=== PATIENT | female | born 1930 | race Native Hawaiian/Other Pacific Islander ===

== ENCOUNTER 2016-04-14 08:21 | Outpatient (CLI) | payer OTHER, MEDICARE ==
[~2016-04-14 08:21] MED LIST: CALCIUM600 M1 PO; FURO40TA93 PO; LORCET 5-325 MG1 TAB PO; MELOXICAM7.5 MG PO; MICRO-K10 MEQ PO; SPIRONOLACT25 MG PO; VITAMIN D1000 UNIT PO; WARF4TAB7 PO; WARFARIN2 MG PO
== END 2016-04-14 10:21 | disposition home or self-care (01) ==
LOC: LABW 08:21
DX: I48.91 Unspecified atrial fibrillation (principal); Z79.01 Long term (current) use of anticoagulants; Z51.81 Encounter for therapeutic drug level monitoring
CPT/HCPCS: 36415; 85610

== ENCOUNTER 2016-05-14 15:34 | Emergency (ER) | payer OTHER, MEDICARE ==
[~2016-05-14] VITALS: Ht 160 cm; Wt 78.0 kg
[2016-05-14 15:54] VITALS: TEMP 98.5
[2016-05-14 16:42] LABS: POTASSIUM 4.2 mmol/L (3.6-5.2)
[2016-05-14 16:50] LABS: PLATELET COUNT 197 K/uL (152-353)
[2016-05-14 17:35] VITALS: BP 181/84
== END 2016-05-14 17:35 | disposition home or self-care (01) ==
LOC: ED 15:34
PROVIDERS: Specialist
DX: N93.8 Other specified abnormal uterine and vaginal bleeding (principal)
CPT/HCPCS: 80048; 81000; 85027; 85610; 99283

== ENCOUNTER 2016-05-21 07:55 | Outpatient (CLI) | payer OTHER, MEDICARE | END 2016-05-21 19:31 | disposition home or self-care (01) | LOC: LABW 07:55 | DX: I48.91 Unspecified atrial fibrillation (principal); Z79.01 Long term (current) use of anticoagulants; Z51.81 Encounter for therapeutic drug level monitoring | CPT/HCPCS: 36415; 85610 ==

== ENCOUNTER 2016-05-28 08:30 | Outpatient (CLI) | payer OTHER, MEDICARE | END 2016-05-28 19:43 | disposition home or self-care (01) | LOC: LABW 08:30 | DX: Z79.01 Long term (current) use of anticoagulants (principal); Z51.81 Encounter for therapeutic drug level monitoring | CPT/HCPCS: 36415; 85610 ==

== ENCOUNTER 2016-06-01 09:47 | Outpatient (CLI) | payer OTHER, MEDICARE | END 2016-06-01 10:47 | disposition home or self-care (01) | LOC: LABW 09:47 | DX: I48.91 Unspecified atrial fibrillation (principal); D68.8 Other specified coagulation defects; Z79.899 Other long term (current) drug therapy; Z51.81 Encounter for therapeutic drug level monitoring | CPT/HCPCS: 36415; 85610 ==

== ENCOUNTER 2016-06-18 13:40 | Outpatient (CLI) | payer OTHER, MEDICARE | END 2016-06-18 14:40 | disposition home or self-care (01) | LOC: LAB 13:40 | DX: Z79.899 Other long term (current) drug therapy (principal); D68.8 Other specified coagulation defects; I48.91 Unspecified atrial fibrillation; Z51.81 Encounter for therapeutic drug level monitoring | CPT/HCPCS: 85610 ==

== ENCOUNTER 2016-07-31 13:49 | Outpatient (CLI) | payer OTHER, MEDICARE ==
[2016-07-31 14:05] LABS: PLATELET COUNT 226 K/uL (152-353)
== END 2016-07-31 19:46 | disposition home or self-care (01) ==
LOC: LAB 13:49
PROVIDERS: Nurse Practitioner Family
DX: Z79.899 Other long term (current) drug therapy (principal); I48.91 Unspecified atrial fibrillation; E55.9 Vitamin D deficiency, unspecified; I10 Essential (primary) hypertension; F41.8 Other specified anxiety disorders; E11.9 Type 2 diabetes mellitus without complications; E78.00 Pure hypercholesterolemia, unspecified
CPT/HCPCS: 80053; 80061; 82306; 82607; 83036; 84436; 84443; 85027

== ENCOUNTER 2016-09-09 14:44 | Inpatient (IN) | payer OTHER, MEDICARE ==
[~2016-09-09] VITALS: Ht 160 cm; Wt 75.9 kg
[2016-09-09] VITALS (8 sets, daily range): BP systolic 94–173; BP diastolic 48–74; TEMP 97.4–98.6; Ht 160 cm; Wt 75.9 kg
[2016-09-09] MEDS ORDERED: ELIQUIS2.5 MG PO (15:00)
[2016-09-09 15:57] LABS: PLATELET COUNT 160 K/uL (152-353)
[2016-09-09 16:07] LABS: POTASSIUM 3.9 mmol/L (3.6-5.2)
[2016-09-09 16:12] LABS: PARTIAL THROMBOPLASTIN TIME 21.5 SECONDS (24.5-33.6)
--- NOTE | 2016-09-09 18:50 | NUR ---
REDNESS OF L LEG OUTLINED WITH MARKER.
[2016-09-10 04:00] VITALS: BP 111/62; TEMP 97.5
[2016-09-10 05:28] LABS: PLATELET COUNT 136 K/uL (152-353)
[2016-09-10 05:44] LABS: POTASSIUM 3.6 mmol/L (3.6-5.2)
[2016-09-10 08:00] VITALS: BP 122/64; TEMP 97.8
[2016-09-10 12:09] VITALS: BP 117/50; TEMP 97.7
[2016-09-10 16:00] VITALS: BP 126/60; TEMP 97.8
[2016-09-10 20:00] VITALS: BP 134/62; TEMP 98.3
[2016-09-11] VITALS: BP 109/55; TEMP 97.7
[2016-09-11 04:00] VITALS: BP 139/58; TEMP 97.9
[2016-09-11 07:58] LABS: POTASSIUM 3.7 mmol/L (3.6-5.2)
[2016-09-11 08:00] VITALS: BP 130/77; TEMP 97.7
[2016-09-11 08:05] LABS: PLATELET COUNT 149 K/uL (152-353)
[2016-09-11 12:00] VITALS: BP 150/71; TEMP 98
[2016-09-11 16:00] VITALS: BP 146/72; TEMP 97.8
[2016-09-11 20:00] VITALS: BP 181/79; TEMP 97.8
[2016-09-12] VITALS: BP 168/76; TEMP 98
[2016-09-12 04:00] VITALS: BP 151/86; TEMP 98.1
[2016-09-12 05:42] LABS: PLATELET COUNT 138 K/uL (152-353)
[2016-09-12 06:03] LABS: POTASSIUM 3.7 mmol/L (3.6-5.2)
[2016-09-12 08:00] VITALS: BP 161/79; TEMP 98.2
[2016-09-12 12:00] VITALS: BP 139/76; TEMP 97.5
[2016-09-12 16:00] VITALS: BP 152/76; TEMP 97.8
[2016-09-12 20:00] VITALS: BP 144/63; TEMP 97.9
[2016-09-13] VITALS: BP 141/65; TEMP 97.9
[2016-09-13 04:00] VITALS: BP 176/75; TEMP 97.3
[2016-09-13 05:30] LABS: PLATELET COUNT 146 K/uL (152-353)
[2016-09-13 08:00] VITALS: BP 175/85; TEMP 97.6
[2016-09-13 12:00] VITALS: BP 124/63; TEMP 97.3
[2016-09-13 15:59] VITALS: BP 97/61; TEMP 98.2
[2016-09-13 20:00] VITALS: BP 153/82; TEMP 98
[2016-09-14] VITALS: BP 173/87; TEMP 97.4
[2016-09-14 04:00] VITALS: BP 185/81; TEMP 97.9
[2016-09-14 05:14] LABS: PLATELET COUNT 143 K/uL (152-353)
[2016-09-14 05:30] LABS: POTASSIUM 3.9 mmol/L (3.6-5.2)
[2016-09-14 08:00] VITALS: BP 181/92; TEMP 97.5
[2016-09-14 12:00] VITALS: BP 153/69; TEMP 97.6
--- NOTE | 2016-09-14 18:09 | NUR ---
IV D/C'D. F/U WITH KAREN CHENG ON September. D/C INSTURCTIONS GIVEN. PRESCRIPTION GIVEN. VERBALIZED UNDERSTANDING. PT WHEELED OUT AT 1720.
== END 2016-09-14 17:00 | disposition home or self-care (01) | DRG 603 ==
LOC: ED 14:44 → MED/SURG 17:30
PROVIDERS: Emergency Medicine; Internal Medicine; ADMIT Family Medicine
DX: L03.116 Cellulitis of left lower limb (principal); I73.89 Other specified peripheral vascular diseases; I12.9 Hypertensive chronic kidney disease with stage 1 through stage 4 chronic kidney disease, or unspecified chronic kidney disease; N18.3 Chronic kidney disease, stage 3 (moderate); E11.65 Type 2 diabetes mellitus with hyperglycemia; Z79.4 Long term (current) use of insulin; J20.9 Acute bronchitis, unspecified
CPT/HCPCS: 36415; 80053; 81000; 82948; 83036; 83735; 85027; 85379; 85610; 85651; 85730; 93005; 94664; 94760; 96365; 96366; 96367; 96372; 96375; 99284; J1885; J2543; J2550; J2930; J3490

== ENCOUNTER 2016-09-22 06:39 | Emergency (ER) | payer OTHER, MEDICARE ==
[~2016-09-22] VITALS: Ht 160 cm; Wt 72.6 kg
[~2016-09-22 06:39] MED LIST changes: +ELIQUIS2.5 MG PO
[2016-09-22 06:52] VITALS: TEMP 98.3
[2016-09-22] MEDS ORDERED: CIPRO500 MG PO (06:55)
[2016-09-22 07:59] LABS: PLATELET COUNT 160 K/uL (152-353)
[2016-09-22 08:28] LABS: POTASSIUM 3.3 mmol/L (3.6-5.2)
[2016-09-22 09:49] VITALS: BP 129/77
== END 2016-09-22 09:50 | disposition home or self-care (01) ==
LOC: ED 06:39
PROVIDERS: Emergency Medicine
DX: M25.572 Pain in left ankle and joints of left foot (principal); L03.116 Cellulitis of left lower limb
CPT/HCPCS: 36415; 80053; 85027; 85651; 87040; 96374; 96375; 99283; J1885; J2175; J2405

== ENCOUNTER 2016-10-29 14:26 | Outpatient (CLI) | payer OTHER, MEDICARE ==
[~2016-10-29 14:26] MED LIST changes: +CIPRO500 MG PO
== END 2016-10-29 15:30 | disposition home or self-care (01) ==
LOC: MAMMO 14:26
DX: Z12.31 Encounter for screening mammogram for malignant neoplasm of breast (principal)
CPT/HCPCS: G0202-TC

== ENCOUNTER 2016-11-21 15:23 | Outpatient (CLI) | payer OTHER, MEDICARE ==
[2016-11-21 16:14] LABS: PLATELET COUNT 197 K/uL (152-353)
[2016-11-21 16:39] LABS: POTASSIUM 3.9 mmol/L (3.6-5.2)
== END 2016-11-21 16:25 | disposition home or self-care (01) ==
LOC: LAB 15:23
PROVIDERS: Nurse Practitioner Family
DX: E11.9 Type 2 diabetes mellitus without complications (principal); I48.91 Unspecified atrial fibrillation; Z79.899 Other long term (current) drug therapy; D68.8 Other specified coagulation defects; F41.8 Other specified anxiety disorders; I10 Essential (primary) hypertension; E55.9 Vitamin D deficiency, unspecified
CPT/HCPCS: 80053; 80061; 82306; 83036; 84436; 84443; 85027

== ENCOUNTER 2017-02-20 09:09 | Outpatient (CLI) | payer OTHER, MEDICARE | END 2017-02-20 21:10 | disposition home or self-care (01) | LOC: RAD 09:09 | DX: M54.2 Cervicalgia (principal); R06.02 Shortness of breath ==

== ENCOUNTER 2017-03-19 09:18 | Outpatient (CLI) | payer OTHER, MEDICARE | END 2017-03-19 21:16 | disposition home or self-care (01) | LOC: RESP 09:18 | DX: R06.02 Shortness of breath (principal); R60.0 Localized edema | CPT/HCPCS: 93306 ==

== ENCOUNTER 2017-03-20 17:09 | Emergency (ER) | payer OTHER, MEDICARE ==
[~2017-03-20] VITALS: Ht 160 cm; Wt 75.8 kg
[2017-03-20 17:19] VITALS: TEMP 98.7
[2017-03-20 18:01] LABS: PLATELET COUNT 169 K/uL (152-353)
[2017-03-20 18:10] LABS: POTASSIUM 3.8 mmol/L (3.6-5.2)
[2017-03-20 19:45] VITALS: BP 179/89
== END 2017-03-20 19:45 | disposition home or self-care (01) ==
LOC: ED 17:09
DX: R06.09 Other forms of dyspnea (principal); B34.9 Viral infection, unspecified; J06.9 Acute upper respiratory infection, unspecified
CPT/HCPCS: 36415; 80053; 85027; 94640; 94664; 94760; 99283

== ENCOUNTER 2017-03-26 16:23 | Outpatient (CLI) | payer OTHER, MEDICARE | END 2017-03-26 19:11 | disposition home or self-care (01) | LOC: RAD 16:23 | DX: R05 Cough (principal) ==

== ENCOUNTER 2017-03-27 14:29 | Outpatient (CLI) | payer OTHER, MEDICARE | END 2017-03-27 19:41 | disposition home or self-care (01) | LOC: LABW 14:29 | DX: R06.02 Shortness of breath (principal) | CPT/HCPCS: 83880 ==

== ENCOUNTER 2017-04-08 04:37 | Outpatient (CLI) | payer OTHER, MEDICARE ==
[2017-04-08] MEDS ORDERED: FUROSEMIDE40 MG PO (05:02)
== END 2017-04-08 04:51 | disposition short-term general hospital (02) ==
LOC: AMB 04:37
DX: M25.552 Pain in left hip (principal); M21.852 Other specified acquired deformities of left thigh; W18.39XA Other fall on same level, initial encounter; Y92.090 Kitchen in other non-institutional residence as the place of occurrence of the external cause
CPT/HCPCS: A0425; A0427

== ENCOUNTER 2017-04-08 04:54 | Observation (INO) | payer OTHER, MEDICARE ==
[2017-04-08] VITALS (13 sets, daily range): BP systolic 101–155; BP diastolic 46–98; TEMP 97.6–98.4
[~2017-04-08] VITALS: Ht 160 cm; Wt 76.3 kg
[2017-04-08] MEDS ORDERED: FUROSEMIDE40 MG PO (05:02)
[2017-04-08 07:13] LABS: PARTIAL THROMBOPLASTIN TIME 22.5 SECONDS (24.5-33.6)
[2017-04-08 08:54] LABS: PLATELET COUNT 235 K/uL (152-353)
--- NOTE | 2017-04-08 18:25 | NUR ---
182 REC'D PT FROM ER VIA STRECTHER. PT AWAKE AND ALERT. ORIENTED X 4. NO ACUTE DISTRESS NTOED. ASSISTED PT TO BED. INSTRUCTIONS GIVEN ON HOW AND WHEN TO CALL NURSE. 20G HL INTACT TO LEFT WRIST.
[2017-04-09] VITALS: BP 112/48; TEMP 98.6
[2017-04-09 02:47] VITALS: BP 120/55; TEMP 98.5; Ht 160 cm; Wt 76.3 kg
--- NOTE | 2017-04-09 04:34 | NUR ---
AT 2140 PT'S HEMATOMA WAS UNWRAPPED AND MEASURED. HEMATOMA WAS APPROXIMATELY 5 INCHES IN DIAMETER AND WAS MARKED. IT APPPEARS TO HAVE WENT DOWN COMPAIRED TO EARLIER MARKINGS. WILL CONTINUE TO MONITOR.
[2017-04-09 06:22] LABS: PLATELET COUNT 185 K/uL (152-353)
[2017-04-09 06:33] LABS: POTASSIUM 5.1 mmol/L (3.6-5.2)
[2017-04-09 12:00] VITALS: BP 100/48; TEMP 98.9
--- NOTE | 2017-04-09 12:48 | NUR ---
IV D/C'D. D/C INSTRUCTIONS GIVEN. PT/FAMILY HAS NO FUTHER QUESTIONS. PT WHEELED OUT AT THIS TIME. NO PROBLEMS NOTED.
== END 2017-04-09 12:48 | disposition home or self-care (01) ==
LOC: ED 04:54 → MED/SURG 17:35
PROVIDERS: ADMIT Family Medicine
DX: S70.02XA Contusion of left hip, initial encounter (principal); W19.XXXA Unspecified fall, initial encounter; Y93.89 Activity, other specified; Y92.89 Other specified places as the place of occurrence of the external cause; Y99.8 Other external cause status; E11.9 Type 2 diabetes mellitus without complications; Z79.01 Long term (current) use of anticoagulants; M25.552 Pain in left hip
CPT/HCPCS: 36415; 80053; 85014; 85018; 85027; 85610; 85730; 96360; 96372; 96376; 99220; 99284; G0378; J1170; J1885; J2405; J2550

== ENCOUNTER 2017-04-11 12:39 | Outpatient (CLI) | payer OTHER, MEDICARE ==
[~2017-04-11 12:39] MED LIST changes: +FUROSEMIDE40 MG PO
== END 2017-04-11 13:40 | disposition home or self-care (01) ==
LOC: LAB 12:39
DX: E16.1 Other hypoglycemia (principal); D64.89 Other specified anemias
CPT/HCPCS: 85018

== ENCOUNTER 2017-04-22 14:03 | Emergency (ER) | payer OTHER, MEDICARE ==
[~2017-04-22] VITALS: Ht 160 cm; Wt 75.3 kg
[2017-04-22 14:10] VITALS: TEMP 98
[2017-04-22 15:37] LABS: PLATELET COUNT 203 K/uL (152-353)
[2017-04-22 15:57] LABS: POTASSIUM 3.9 mmol/L (3.6-5.2)
[2017-04-22 17:20] VITALS: BP 158/78
== END 2017-04-22 17:20 | disposition home or self-care (01) ==
LOC: ED 14:03
PROVIDERS: Family Medicine
DX: L03.116 Cellulitis of left lower limb (principal); L03.115 Cellulitis of right lower limb; M79.604 Pain in right leg
CPT/HCPCS: 36415; 80053; 85027; 99283; J3490

== ENCOUNTER 2017-04-29 07:48 | Outpatient (CLI) | payer OTHER, MEDICARE | END 2017-04-29 19:17 | disposition home or self-care (01) | LOC: RESP 07:48 | DX: R06.02 Shortness of breath (principal) | CPT/HCPCS: 94664 ==

== ENCOUNTER 2017-05-30 09:25 | Outpatient (CLI) | payer OTHER, MEDICARE | END 2017-05-30 19:15 | disposition home or self-care (01) | LOC: CT 09:25 | DX: R06.02 Shortness of breath (principal) | CPT/HCPCS: 36415; 82565; 84520 ==

== ENCOUNTER 2017-10-11 09:06 | Outpatient (CLI) | payer OTHER, MEDICARE ==
[2017-10-11 14:30] LABS: POTASSIUM 4.1 mmol/L (3.6-5.2)
[2017-10-11 14:34] LABS: PLATELET COUNT 211 K/uL (152-353)
== END 2017-10-11 19:43 | disposition home or self-care (01) ==
LOC: US 09:06 → LAB 09:06 → US 19:43
PROVIDERS: Nurse Practitioner Family
DX: R51 Headache (principal); I10 Essential (primary) hypertension; D68.8 Other specified coagulation defects; R53.82 Chronic fatigue, unspecified; R53.81 Other malaise; Z79.899 Other long term (current) drug therapy; Z51.81 Encounter for therapeutic drug level monitoring
CPT/HCPCS: 80053; 80061; 83036; 84436; 84443; 85027; 85651; 86140

== ENCOUNTER 2017-10-31 16:53 | Outpatient (CLI) | payer OTHER, MEDICARE | END 2017-10-31 21:27 | disposition home or self-care (01) | LOC: RAD 16:53 | DX: M54.81 Occipital neuralgia (principal); M43.02 Spondylolysis, cervical region ==

== ENCOUNTER 2017-11-07 08:07 | Outpatient (CLI) | payer OTHER, MEDICARE | END 2017-11-07 19:29 | disposition home or self-care (01) | LOC: MAMMO 08:07 | DX: Z12.31 Encounter for screening mammogram for malignant neoplasm of breast (principal) ==

== ENCOUNTER 2018-02-23 07:14 | Emergency (ER) | payer OTHER, MEDICARE ==
[~2018-02-23] VITALS: Ht 160 cm; Wt 73.9 kg
[2018-02-23 07:26] VITALS: TEMP 97.3
[2018-02-23 07:55] VITALS: BP 156/84
== END 2018-02-23 07:55 | disposition home or self-care (01) ==
LOC: ED 07:14
DX: M79.605 Pain in left leg (principal); R22.42 Localized swelling, mass and lump, left lower limb; L03.116 Cellulitis of left lower limb
CPT/HCPCS: 99281

== ENCOUNTER 2018-03-07 09:39 | Outpatient (CLI) | payer OTHER, MEDICARE | END 2018-03-07 22:14 | disposition home or self-care (01) | LOC: US 09:39 | DX: M79.89 Other specified soft tissue disorders (principal); M79.606 Pain in leg, unspecified; L81.9 Disorder of pigmentation, unspecified ==

== ENCOUNTER 2018-04-03 11:34 | Outpatient (CLI) | payer OTHER, MEDICARE | END 2018-04-03 21:39 | disposition home or self-care (01) | LOC: LAB 11:34 | DX: N39.0 Urinary tract infection, site not specified (principal) | CPT/HCPCS: 87086; 87088 ==

== ENCOUNTER 2018-05-28 14:27 | Outpatient (CLI) | payer OTHER, MEDICARE ==
[2018-05-28 14:50] LABS: POTASSIUM 4.1 mmol/L (3.6-5.2)
== END 2018-05-28 19:13 | disposition home or self-care (01) ==
LOC: LABW 14:27
PROVIDERS: Internal Medicine Cardiovascular Disease
DX: Z79.899 Other long term (current) drug therapy (principal); I50.9 Heart failure, unspecified
CPT/HCPCS: 36415; 80048; 83880

== ENCOUNTER 2018-08-11 18:31 | Emergency (ER) | payer OTHER, MEDICARE ==
[~2018-08-11] VITALS: Ht 160 cm; Wt 73.9 kg
[2018-08-11 18:31] VITALS: TEMP 97.6
[2018-08-11 19:51] VITALS: BP 149/68
== END 2018-08-11 19:54 | disposition home or self-care (01) ==
LOC: ED 18:31
DX: R60.9 Edema, unspecified (principal); N18.9 Chronic kidney disease, unspecified; M79.662 Pain in left lower leg
CPT/HCPCS: 96372; 99282; J1940

== ENCOUNTER 2018-08-12 11:58 | Outpatient (CLI) | payer OTHER, MEDICARE ==
[2018-08-12 13:20] LABS: PLATELET COUNT 206 K/uL (152-353)
== END 2018-08-12 20:31 | disposition home or self-care (01) ==
LOC: LABW 11:58
PROVIDERS: Internal Medicine
DX: N18.3 Chronic kidney disease, stage 3 (moderate) (principal); R60.1 Generalized edema; Z79.899 Other long term (current) drug therapy
CPT/HCPCS: 36415; 80053; 81000; 82306; 82330; 82570; 83036; 83735; 83970; 84100; 84155; 84439; 84443; 85027; 87086; 87088

== ENCOUNTER 2018-11-11 08:24 | Outpatient (CLI) | payer OTHER, MEDICARE | END 2018-11-11 23:59 | disposition home or self-care (01) | LOC: MAMMO 08:24 | DX: Z12.31 Encounter for screening mammogram for malignant neoplasm of breast (principal) ==

== ENCOUNTER 2019-01-13 05:40 | Emergency (ER) | payer OTHER, MEDICARE ==
[~2019-01-13] VITALS: Ht 160 cm; Wt 73.9 kg
[2019-01-13 07:27] VITALS: BP 147/53; TEMP 97.7
== END 2019-01-13 07:29 | disposition home or self-care (01) ==
LOC: ED 05:40
DX: M10.9 Gout, unspecified (principal)
CPT/HCPCS: 84550; 99283

== ENCOUNTER 2019-04-22 14:18 | Outpatient (CLI) | payer OTHER, MEDICARE ==
[2019-04-22 14:58] LABS: PLATELET COUNT 191 K/uL (152-353)
[2019-04-22 15:02] LABS: POTASSIUM 4.1 mmol/L (3.6-5.2)
== END 2019-04-22 22:31 | disposition home or self-care (01) ==
LOC: LABW 14:18
PROVIDERS: Internal Medicine
DX: N18.3 Chronic kidney disease, stage 3 (moderate) (principal)
CPT/HCPCS: 36415; 80053; 82043; 82330; 82570; 83735; 83970; 84100; 84155; 85007; 85027

== ENCOUNTER 2019-05-20 14:21 | Outpatient (CLI) | payer OTHER, MEDICARE ==
[2019-05-20 14:58] LABS: PLATELET COUNT 194 K/uL (152-353)
[2019-05-20 15:07] LABS: POTASSIUM 3.8 mmol/L (3.6-5.2)
== END 2019-05-20 19:25 | disposition home or self-care (01) ==
LOC: LABW 14:21
PROVIDERS: Nurse Practitioner
DX: N18.3 Chronic kidney disease, stage 3 (moderate) (principal)
CPT/HCPCS: 36415; 80053; 82043; 82570; 83735; 84100; 84155; 85027